=== PATIENT | female | born 1965 | race American Indian/Alaskan Native ===

== ENCOUNTER 2017-05-03 09:05 | Emergency (ER) | payer MEDICAID, OTHER ==
[2017-05-03 09:05] VITALS: BMI 33.8
[2017-05-03 09:15] VITALS: TEMP 98.2; O2SAT 99
--- NOTE | 2017-05-03 09:57 | RAD ---
PROCEDURE: Radiographs of the Right Shoulder HISTORY: right shoulder pain after fall COMPARISON: No prior. FINDINGS: BONES: Bone alignment and mineralization are normal. No acute fracture. JOINTS: Normal. Glenohumeral and acromioclavicular joints preserved. No osteoarthritis. SOFT TISSUES: Normal. OTHER FINDINGS: None. IMPRESSION: No acute fracture or dislocation.
--- NOTE | 2017-05-03 10:06 | C.PDOC ---
History Of Present Illness 51 y/o female brought by ambulance presents to the ED c/o right shoulder and lateral neck pain. The patient states that she tripped and fell this morning while going to work. Patient states that she going down the stairs holding the railing with her right hand and she slipped and fell on the buttock. The patient denies low back and buttock pain, LOC, and head injury. - HPI Time Seen by Provider: 05/03/17 09:06 Chief Complaint (Nursing): Trauma History Per: EMS History/Exam Limitations: no limitations Onset/Duration Of Symptoms: Hrs Additional History Per: EMS - Fall Fall:Prior To Injury: Tripped, Slipped Past Medical History Reviewed: Historical Data, Nursing Documentation, Vital Signs Vital Signs: Last Vital Signs Temp 98.2 F 05/03/17 09:12 Pulse 75 05/03/17 10:20 Resp 18 05/03/17 10:20 BP 120/72 05/03/17 10:20 Pulse Ox 99 05/03/17 11:30 - Medical History PMH: HTN Denies: Depression, Chronic Kidney Disease Surgical History: Cholecystectomy - [facility] Procedures CHOLECYSTECTOMY (12/18/13) INJECT/INFUSE ELECTROLYT (05/06/14) INJECT/INFUSE NEC (05/06/14) INTRAOPER CHOLANGIOGRAM (12/18/13) IRRIGATION OF EAR (09/09/14) VENOUS PUNCTURE NEC (08/22/13) Family History: States: No Known Family Hx - Social History Hx Tobacco Use: No Hx Alcohol Use: No Hx Substance Use: No - Immunization History Hx Tetanus Toxoid Vaccination: No Hx Influenza Vaccination: No Hx Pneumococcal Vaccination: No Review Of Systems Except As Marked, All Systems Reviewed And Found Negative. Cardiovascular: Negative for: Chest Pain Gastrointestinal: Negative for: Abdominal Pain Musculoskeletal: Positive for: Neck Pain (lateral ), Shoulder Pain (right ) Skin: Negative for: Rash Physical Exam - Physical Exam Appears: Non-toxic, No Acute Distress, Other (comfortable ) Skin: Warm, Dry Head: Atraumatic Eye(s): bilateral: Normal Inspection Oral Mucosa: Moist Neck: Other (tender to palpate at the right trapezius muscle and no midline tenderness) Chest: Symmetrical Cardiovascular: Rhythm Regular Respiratory: Normal Breath Sounds Back: No CVA Tenderness, No Paraspinal Tenderness, Other (tender to palpate posterior of the shoulder to the superior aspect of scapula and ROM in tact of right shoulder and no deformity ) Extremity: Capillary Refill (2<sec. ) Neurological/Psych: Oriented x3, Normal Speech, Normal Motor, Normal Sensation Gait: Steady ED Course And Treatment O2 Sat by Pulse Oximetry: 99 (RA) Progress Note: X- ray of the right shoulder was performed . Upon reassessment, the patient is afebrile. The patient was Rx Tylenol for home. The patient went home with an arm sling. The patient is advised to have a 1-2 day follow up with her orthopedic doctor for further evaluation. Medical Decision Making Medical Decision Making: PROCEDURE: Radiographs of the Right Shoulder HISTORY: right shoulder pain after fall COMPARISON: No prior. FINDINGS: BONES: Bone alignment and mineralization are normal. No acute fracture. JOINTS: Normal. Glenohumeral and acromioclavicular joints preserved. No osteoarthritis. SOFT TISSUES: Normal. OTHER FINDINGS: None. IMPRESSION: No acute fracture or dislocation. Disposition Counseled Patient/Family Regarding: Studies Performed, Diagnosis, Need For Followup, Rx Given - Disposition Referrals: Adolph Stewart MD [Staff Provider] - Disposition: HOME/ ROUTINE Disposition Time: 10:10 Condition: STABLE Additional Instructions: FOLLOW UP WITH ORTHOPEDICS WITHIN 1 WEEK USE MEDICATIONS NEEDED RETURN TO ER IF SYMPTOMS WORSEN Prescriptions: Cyclobenzaprine [Cyclobenzaprine HCl] 10 mg PO BID PRN #15 tab PRN Reason: Muscle Spasm Naproxen 375 mg PO BID PRN #20 tablet PRN Reason: pain Instructions: Shoulder Sprain (ED) Forms: [facility] (Japanese), Work Excuse Print Language: ROMANSH - POA Present On Arrival: Falls Or Trauma - Clinical Impression Clinical Impression: Sprain of right shoulder - Scribe Statement The provider has reviewed the documentation as recorded by the Scribe Citlalli Deluna
[2017-05-03 10:27] VITALS: BP 120/72; PULSE 75; RESP 18
== END 2017-05-03 10:20 | disposition home or self-care (01) ==
LOC: C.ER 09:05
DX: S43.401A Unspecified sprain of right shoulder joint, initial encounter (principal); W01.0XXA Fall on same level from slipping, tripping and stumbling without subsequent striking against object, initial encounter; I10 Essential (primary) hypertension